=== PATIENT | female | born 1980 | race Caucasian/White ===

== ENCOUNTER 2022-05-24 13:10 | Inpatient (IN) | payer OTHER ==
[~2022-05-24] VITALS: Ht 198.1 cm; Wt 63.5 kg
== END 2022-05-28 14:32 | disposition home or self-care (01) | DRG 866 ==
LOC: ER 13:10 → SURH 19:24
PROVIDERS: ADMIT Internal Medicine; ATTEND Internal Medicine
PROC: BW21Y0Z Computerized Tomography (CT Scan) of Abdomen and Pelvis using Other Contrast, Unenhanced and Enhanced (ICD-10-PCS; principal; 2022-05-24)
PROC: BB24Y0Z Computerized Tomography (CT Scan) of Bilateral Lungs using Other Contrast, Unenhanced and Enhanced (ICD-10-PCS; 2022-05-24)
PROC: B020Y0Z Computerized Tomography (CT Scan) of Brain using Other Contrast, Unenhanced and Enhanced (ICD-10-PCS; 2022-05-24)
PROC: 4A12X4Z Monitoring of Cardiac Electrical Activity, External Approach (ICD-10-PCS; 2022-05-26)
DX: B34.9 Viral infection, unspecified (principal); A27.9 Leptospirosis, unspecified; D72.819 Decreased white blood cell count, unspecified; M62.81 Muscle weakness (generalized); D69.6 Thrombocytopenia, unspecified; D72.821 Monocytosis (symptomatic); R00.1 Bradycardia, unspecified; J32.3 Chronic sphenoidal sinusitis; R10.9 Unspecified abdominal pain; F17.210 Nicotine dependence, cigarettes, uncomplicated; Z20.822 Contact with and (suspected) exposure to COVID-19